=== PATIENT | female | born 1930 | race Two or more races ===

== ENCOUNTER → 2017-02-24 | Outpatient (CLI) | payer OTHER ==
[~2017-02-24] MED LIST: ACET5SOL5 PO; ASPI-378 PO; IBUP200C14 PO
[2017-02-24 12:08] LABS: Basophils # (auto) 0.2 uL; Basophils % (auto) 1.9 % (0.0-2.0); Eosinophils # (auto) 0.2 uL; Eosinophils % (auto) 2.9 % (0.0-7.0); Hematocrit 38.8 % (36.0-46.0); Hemoglobin 12.3 g/dL (12.2-16.2); Lymphocytes # (auto) 2.2 uL; Lymphocytes % (auto) 26.1 % (10.0-50.0); Mean Corpuscular Hemoglobin 27.3 pg (28.0-32.0); Mean Corpuscular Hgb Conc. 31.8 g/dL (32.0-36.0); Mean Corpuscular Volume 85.6 fL (80.0-100.0); Mean Platelet Volume 7.1 fL (7.4-10.4); Monocytes # (auto) 0.6 uL; Monocytes % (auto) 7.2 % (0.0-12.0); Neutrophils # (auto) 5.2 uL; Neutrophils % (auto) 61.9 % (37.0-80.0); Platelet Count (auto) 290 10^3/uL (140-450); White Blood Cell 8.3 10^3/uL (4.4-10.8)
== END | disposition home or self-care (01) ==
LOC: LAB 11:51
PROVIDERS: ATTEND Internal Medicine
DX: R10.9 Unspecified abdominal pain (principal)
CPT/HCPCS: 36415; 84132; 85025; 86431

== ENCOUNTER → 2018-01-20 | Outpatient (CLI) | payer OTHER ==
[2018-01-20 09:58] LABS: Basophils # (auto) 0.1 uL; Basophils % (auto) 1.2 % (0.0-2.0); Eosinophils # (auto) 0.2 uL; Eosinophils % (auto) 2.9 % (0.0-7.0); Lymphocytes # (auto) 1.8 uL; Lymphocytes % (auto) 24.5 % (10.0-50.0); Mean Corpuscular Hemoglobin 28.8 pg (28.0-32.0); Mean Corpuscular Hgb Conc. 32.6 g/dL (32.0-36.0); Mean Corpuscular Volume 88.5 fL (80.0-100.0); Monocytes # (auto) 0.4 uL; Monocytes % (auto) 5.9 % (0.0-12.0); Neutrophils # (auto) 4.8 uL; Neutrophils % (auto) 65.5 % (37.0-80.0); Platelet Count (auto) 217 10^3/uL (140-450); Red Blood Cells 4.87 10^6/uL (4.0-5.20); Red Cell Distribution Width 14.6 % (11.8-14.3); White Blood Cell 7.3 10^3/uL (4.4-10.8)
[2018-01-20 10:24] LABS: Albumin 3.6 g/dL (3.4-5.0); BUN/Creatinine Ratio 18.3; Bilirubin, Total 0.5 mg/dL (0.2-1.0); Calcium 9.3 mg/dL (8.5-10.1); Potassium 4.1 mmol/L (3.5-5.1); Total Protein 7.7 g/dL (6.4-8.2)
[2018-01-20 10:38] LABS: Free T4 (Free Thyroxine) 1.15 ng/dL (0.89-1.76)
== END | disposition home or self-care (01) ==
LOC: LAB 09:25
PROVIDERS: ATTEND Internal Medicine
DX: E11.40 Type 2 diabetes mellitus with diabetic neuropathy, unspecified (principal); I12.9 Hypertensive chronic kidney disease with stage 1 through stage 4 chronic kidney disease, or unspecified chronic kidney disease; E11.22 Type 2 diabetes mellitus with diabetic chronic kidney disease; N18.3 Chronic kidney disease, stage 3 (moderate)
CPT/HCPCS: 36415; 80053; 80061; 82150; 82607; 83036; 83690; 83880; 84439; 84443; 85025; 85652

== ENCOUNTER 2018-05-25 08:25 | Inpatient (IN) | payer OTHER ==
[2018-05-23 13:22] LABS: Basophils # (auto) 0.1 uL; Basophils % (auto) 0.9 % (0.0-2.0); Eosinophils # (auto) 0.1 uL; Eosinophils % (auto) 1.2 % (0.0-7.0); Hematocrit 44.6 % (36.0-46.0); Hemoglobin 14.5 g/dL (12.2-16.2); Lymphocytes # (auto) 1.9 uL; Lymphocytes % (auto) 24.9 % (10.0-50.0); Mean Corpuscular Hgb Conc. 32.6 g/dL (32.0-36.0); Mean Corpuscular Volume 89.1 fL (80.0-100.0); Monocytes # (auto) 0.5 uL; Monocytes % (auto) 7.3 % (0.0-12.0); Neutrophils # (auto) 4.9 uL; Neutrophils % (auto) 65.7 % (37.0-80.0); Platelet Count (auto) 222 10^3/uL (140-450); White Blood Cell 7.5 10^3/uL (4.4-10.8)
[2018-05-23 13:48] LABS: INR 0.99 (0.9-1.15); Partial Thromboplastin Time 26.5 sec (23.78-33.04); Prothrombin Time 10.6 sec (9.27-12.13)
[2018-05-23 13:59] LABS: Albumin 3.6 g/dL (3.4-5.0); Calcium 9.7 mg/dL (8.5-10.1); Potassium 3.5 mmol/L (3.5-5.1)
[2018-05-23 14:03] LABS: Bilirubin, Total 0.4 mg/dL (0.2-1.0); Total Protein 7.8 g/dL (6.4-8.2)
[~2018-05-25] VITALS: Ht 160 cm; Wt 63.6 kg
[~2018-05-25 08:25] MED LIST changes: -ACET5SOL5 PO; -ASPI-378 PO; +ATOR10TA52 PO; +CLON1TAB4 PO; +ENA10T PO; +FLUT250M2 INH; -IBUP200C14 PO; +METO25TA5 PO; +ONDA4TAB5 PO; +PIO30T PO; +TRAM50TA2 PO
[2018-05-25] MEDS ORDERED: LIDOCAINE 2%HCL (LOCAL ANESTH.) INJ 20ML MDV ONE (08:44)
[2018-05-25] MEDS ORDERED: IODIXANOL 320MG/ML 100ML BTL IV ONE (08:44)
[2018-05-25] MEDS ORDERED: ANGIOMAX 250 MG VIAL IV ONE (09:57)
[2018-05-25] MEDS ORDERED: fentaNYL CITRATE 100 MCG/2 ML VL ONE (09:58)
[2018-05-25] MEDS ORDERED: SODIUM CHL 0.9% 0 ML ONE (09:58)
[2018-05-25] MEDS ORDERED: MIDAZOLAM HCL 1MG/1ML-2 ML VIAL ONE (09:58)
[2018-05-25] MEDS ORDERED: METOPROLOL TARTRATE 1MG/1ML-5ML VIAL IV ONE (11:05)
[2018-05-25] MEDS ORDERED: traMADol HCL 50 MG TAB PO PRN (12:00)
[2018-05-25] MEDS ORDERED: NITROGLYCERIN 0.4 MG SL TAB SL PRN (12:00)
[2018-05-25] MEDS ORDERED: MORPHINE SULFATE 4 MG/ML SYR/VIAL IV PRN (12:00)
[2018-05-25] MEDS ORDERED: ACETAMINOPHEN 500 MG TAB PO PRN (12:00)
[2018-05-25] MEDS ORDERED: ONDANSETRON ODT 4 MG TAB PO PRN (12:15)
[2018-05-25] MEDS: clonazePAM 0.5 MG TAB PO SCH ×2 (12:15→18:06)
[2018-05-25] MEDS: HYDROcodone-ACET 5/325MG TAB PO PRN (12:17)
[2018-05-25 16:31] VITALS: BP 156/76
[2018-05-25 21:39] VITALS: BP 125/64
[2018-05-25] MEDS: ADVAIR INH SCH (22:00)
[2018-05-25] MEDS: METOPROLOL TARTRATE 25 MG TAB PO SCH (22:01)
[2018-05-25] MEDS: ATORVASTATIN 20 MG TAB PO SCH (22:01)
[2018-05-25 22:53] LABS: Urine Bacteria NONE SEEN /hpf (None Seen); Urine Blood 1+ /uL (Negative); Urine WBC 2 /hpf (0 - 5)
[2018-05-26 05:06] VITALS: BP 161/80
[2018-05-26] MEDS: METOPROLOL TARTRATE 25 MG TAB PO SCH ×2 (07:50→22:47)
[2018-05-26] MEDS: ENALAPRIL MALEATE 10 MG TAB PO SCH (07:51)
[2018-05-26] MEDS: HYDROcodone-ACET 5/325MG TAB PO PRN (07:52)
[2018-05-26 09:00] VITALS: BP 165/78
[2018-05-26] MEDS ORDERED: PIOGLITAZONE HYDROCHLORIDE 30 MG TAB PO SCH (10:00)
[2018-05-26] MEDS: ADVAIR INH SCH ×2 (10:00→22:00)
[2018-05-26] MEDS ORDERED: DEXTROSE (50%) 50ML SYRG IV PRN (10:15)
[2018-05-26] MEDS: InsuLIN REG 1unit/0.01ml Soln (100units/ml) SC SCH ×3 (11:30→22:00)
[2018-05-26 13:00] VITALS: BP 141/74
[2018-05-26] MEDS: ACCU-CHEK COMFORT CURVE STRIP VI SCH ×3 (13:06→22:00)
[2018-05-26 16:45] VITALS: BP 146/79
[2018-05-26] MEDS: clonazePAM 0.5 MG TAB PO SCH (18:19)
[2018-05-26 22:00] VITALS: BP 141/65
[2018-05-26] MEDS: ATORVASTATIN 20 MG TAB PO SCH (22:45)
[2018-05-27 05:11] VITALS: BP 152/78
[2018-05-27 06:12] LABS: BUN/Creatinine Ratio 22.2; Calcium 8.5 mg/dL (8.5-10.1); Potassium 3.7 mmol/L (3.5-5.1)
[2018-05-27] MEDS: ACCU-CHEK COMFORT CURVE STRIP VI SCH ×2 (06:14→11:42)
[2018-05-27] MEDS: InsuLIN REG 1unit/0.01ml Soln (100units/ml) SC SCH ×2 (06:15→11:30)
[2018-05-27 08:20] VITALS: BP 139/76
[2018-05-27] MEDS: ADVAIR INH SCH (09:59)
[2018-05-27] MEDS: METOPROLOL TARTRATE 25 MG TAB PO SCH (10:03)
[2018-05-27] MEDS: ENALAPRIL MALEATE 10 MG TAB PO SCH (10:04)
[2018-05-27 12:30] VITALS: BP 138/65
[2018-05-27 16:54] VITALS: BP 120/65
== END 2018-05-27 17:55 | disposition home or self-care (01) | DRG 286 ==
LOC: CATH 08:25 → TELE-CENTR 14:10
PROVIDERS: ADMIT Internal Medicine; ATTEND Internal Medicine
PROC: 4A023N8 Measurement of Cardiac Sampling and Pressure, Bilateral, Percutaneous Approach (ICD-10-PCS; principal; 2018-05-26)
PROC: B2111ZZ Fluoroscopy of Multiple Coronary Arteries using Low Osmolar Contrast (ICD-10-PCS; 2018-05-26)
PROC: B2151ZZ Fluoroscopy of Left Heart using Low Osmolar Contrast (ICD-10-PCS; 2018-05-26)
DX: I35.0 Nonrheumatic aortic (valve) stenosis (principal); J96.00 Acute respiratory failure, unspecified whether with hypoxia or hypercapnia; I27.20 Pulmonary hypertension, unspecified; D64.9 Anemia, unspecified; E11.22 Type 2 diabetes mellitus with diabetic chronic kidney disease; I12.9 Hypertensive chronic kidney disease with stage 1 through stage 4 chronic kidney disease, or unspecified chronic kidney disease; J44.9 Chronic obstructive pulmonary disease, unspecified; M19.90 Unspecified osteoarthritis, unspecified site; N18.3 Chronic kidney disease, stage 3 (moderate); Z79.84 Long term (current) use of oral hypoglycemic drugs; Z87.891 Personal history of nicotine dependence; Z87.19 Personal history of other diseases of the digestive system
CPT/HCPCS: 36415; 36600; 71250; 80048; 80053; 81001; 82805; 82962; 83036; 85025; 85610; 85730; 93306; 93886; 99152; A6257; C1751; G0378; J2250; Q0162; Q9967

== ENCOUNTER → 2019-03-28 | Outpatient (CLI) | payer OTHER ==
[~2019-03-28] MED LIST changes: +CLON1TAB10 PO; -CLON1TAB4 PO; -ENA10T PO; +ENAL10TA PO; +ONDA-144 PO; -ONDA4TAB5 PO
[2019-03-28 09:32] LABS: Urine WBC None Seen /hpf (0 - 5)
[2019-03-28 09:41] LABS: Basophils # (auto) 0.1 uL; Eosinophils # (auto) 0.3 uL; Eosinophils % (auto) 3.9 % (0.0-7.0); Hematocrit 44.5 % (36.0-46.0); Hemoglobin 14.8 g/dL (12.2-16.2); Lymphocytes # (auto) 1.7 uL; Lymphocytes % (auto) 26.7 % (10.0-50.0); Mean Corpuscular Hemoglobin 29.7 pg (28.0-32.0); Mean Corpuscular Hgb Conc. 33.1 g/dL (32.0-36.0); Mean Corpuscular Volume 89.7 fL (80.0-100.0); Monocytes # (auto) 0.4 uL; Monocytes % (auto) 6.7 % (0.0-12.0); Neutrophils % (auto) 61.7 % (37.0-80.0); Platelet Count (auto) 218 10^3/uL (140-450); Red Blood Cells 4.96 10^6/uL (4.0-5.20); Red Cell Distribution Width 13.5 % (11.8-14.3); White Blood Cell 6.5 10^3/uL (4.4-10.8)
[2019-03-28 09:46] LABS: Urine Bacteria NONE SEEN /hpf (None Seen); Urine Blood 1+ /uL (Negative); Urine Specific Gravity 1.014 (1.001-1.035)
[2019-03-28 10:23] LABS: Albumin 3.4 g/dL (3.4-5.0)
[2019-03-28 10:32] LABS: BUN/Creatinine Ratio 17.6; Bilirubin, Total 0.4 mg/dL (0.2-1.0); Calcium 9.4 mg/dL (8.5-10.1); Total Protein 7.3 g/dL (6.4-8.2)
[2019-03-28 10:35] LABS: Free T4 (Free Thyroxine) 1.02 ng/dL (0.89-1.76)
== END | disposition home or self-care (01) ==
LOC: LAB 08:50
PROVIDERS: ATTEND Internal Medicine
DX: I12.9 Hypertensive chronic kidney disease with stage 1 through stage 4 chronic kidney disease, or unspecified chronic kidney disease (principal); E11.22 Type 2 diabetes mellitus with diabetic chronic kidney disease; N18.3 Chronic kidney disease, stage 3 (moderate)
CPT/HCPCS: 36415; 80053; 80061; 81001; 82043; 82607; 83036; 84439; 84443; 85025; 85652

== ENCOUNTER 2019-07-07 12:46 | Emergency (ER) | payer OTHER, MEDICAID ==
[~2019-07-07] VITALS: Ht 160 cm; Wt 68.0 kg
[2019-07-07 13:22] LABS: Basophils # (auto) 0.1 uL; Basophils % (auto) 0.9 % (0.0-2.0); Eosinophils # (auto) 0.2 uL; Eosinophils % (auto) 1.4 % (0.0-7.0); Hematocrit 44.4 % (36.0-46.0); Hemoglobin 14.7 g/dL (12.2-16.2); Lymphocytes % (auto) 18.8 % (10.0-50.0); Mean Corpuscular Hemoglobin 28.9 pg (28.0-32.0); Mean Corpuscular Hgb Conc. 33.2 g/dL (32.0-36.0); Monocytes # (auto) 0.6 uL; Monocytes % (auto) 5.6 % (0.0-12.0); Neutrophils # (auto) 7.7 uL; Neutrophils % (auto) 73.3 % (37.0-80.0); Platelet Count (auto) 248 10^3/uL (140-450); White Blood Cell 10.5 10^3/uL (4.4-10.8)
[2019-07-07 13:36] LABS: INR 1.03 (0.9-1.15); Partial Thromboplastin Time 26.4 sec (23.64-32.05)
[2019-07-07 13:44] LABS: Albumin 3.6 g/dL (3.4-5.0); Anion Gap 9 (5-15); Blood Urea Nitrogen 23 mg/dL (7-18); Calcium 9.2 mg/dL (8.5-10.1); Carbon Dioxide 24 mmol/L (21-32); Chloride 108 mmol/L (98-107); Glucose 94 mg/dL (74-106); Potassium 4.1 mmol/L (3.5-5.1); Sodium 141 mmol/L (136-145)
[2019-07-07 13:46] LABS: Alanine Aminotransferase 14 U/L (13-56); Aspartate Aminotransferase 11 U/L (15-37); BUN/Creatinine Ratio 18.7; GFR African American 53 mL/min; GFR Non-African American 44 mL/min
[2019-07-07 13:51] LABS: Alkaline Phosphatase 51 U/L (45-117); Bilirubin, Total 0.4 mg/dL (0.2-1.0); Total Protein 7.5 g/dL (6.4-8.2)
[2019-07-07] MEDS ORDERED: SODIUM CHLORIDE 0.9% 500 ML IV ONE (16:30)
[2019-07-07 17:27] LABS: Urine Bacteria NONE SEEN /hpf (None Seen); Urine Blood 1+ /uL (Negative); Urine Specific Gravity 1.009 (1.001-1.035); Urine WBC 4 /hpf (0 - 5)
[2019-07-07 19:01] VITALS: BP 141/89
== END 2019-07-07 19:03 | disposition home or self-care (01) ==
LOC: ER 12:46
DX: N39.0 Urinary tract infection, site not specified (principal); J44.9 Chronic obstructive pulmonary disease, unspecified; N28.1 Cyst of kidney, acquired; E11.9 Type 2 diabetes mellitus without complications; E78.5 Hyperlipidemia, unspecified; I10 Essential (primary) hypertension; K21.9 Gastro-esophageal reflux disease without esophagitis
CPT/HCPCS: 36415; 70450; 71046; 74176; 80053; 81001; 82962; 83605; 83880; 84484; 85025; 85610; 85730; 93005

== ENCOUNTER → 2019-08-18 | Outpatient (CLI) | payer OTHER, MEDICAID | END | disposition home or self-care (01) | LOC: LAB 15:41 | PROVIDERS: ATTEND Internal Medicine | DX: N34.2 Other urethritis (principal) | CPT/HCPCS: 87086 ==

== ENCOUNTER → 2019-08-28 | Outpatient (CLI) | payer OTHER, MEDICAID ==
[2019-08-28 10:31] LABS: Cholesterol 232 mg/dL (< 200); HDL Cholesterol 47 mg/dL (40-59); LDL Cholesterol 167 mg/dL (< 100); Triglycerides 155 mg/dL (< 150)
== END | disposition home or self-care (01) ==
LOC: LAB 09:44
PROVIDERS: ATTEND Internal Medicine
DX: E11.9 Type 2 diabetes mellitus without complications (principal); E78.00 Pure hypercholesterolemia, unspecified
CPT/HCPCS: 36415; 80061; 83036

== ENCOUNTER → 2019-10-23 | Outpatient (CLI) | payer OTHER, MEDICAID ==
[2019-10-23 10:30] LABS: Albumin 3.5 g/dL (3.4-5.0); Calcium 9.3 mg/dL (8.5-10.1); Potassium 4.5 mmol/L (3.5-5.1)
[2019-10-23 10:35] LABS: BUN/Creatinine Ratio 24.8; Bilirubin, Total 0.5 mg/dL (0.2-1.0); Total Protein 7.4 g/dL (6.4-8.2); Uric Acid 7.1 mg/dL (2.6-6.0)
== END | disposition home or self-care (01) ==
LOC: LAB 09:17
PROVIDERS: ATTEND Internal Medicine
DX: E11.22 Type 2 diabetes mellitus with diabetic chronic kidney disease (principal); E78.5 Hyperlipidemia, unspecified; M25.50 Pain in unspecified joint
CPT/HCPCS: 36415; 80053; 80061; 82550; 83036; 84550; 86038

== ENCOUNTER → 2020-01-01 | Outpatient (CLI) | payer OTHER, MEDICAID ==
[2020-01-01 16:35] LABS: Basophils # (auto) 0.1 10 ^3/uL (0-0.2); Lymphocytes # (auto) 1.6 10 ^3/uL (0.4-5.4); Monocytes # (auto) 0.5 10 ^3/uL (0-1.3); White Blood Cell 8.9 10^3/uL (4.4-10.8)
[2020-01-01 16:37] LABS: Eosinophils # (auto) 0.2 10 ^3/uL (0-0.8); Eosinophils % (auto) 1.9 % (0.0-7.0); Hematocrit 23.5 % (36.0-46.0); Hemoglobin 7.4 g/dL (12.2-16.2); Lymphocytes % (auto) 17.8 % (10.0-50.0); Mean Corpuscular Hemoglobin 26.6 pg (28.0-32.0); Mean Corpuscular Hgb Conc. 31.7 g/dL (32.0-36.0); Mean Corpuscular Volume 83.9 fL (80.0-100.0); Monocytes % (auto) 5.8 % (0.0-12.0); Neutrophils # (auto) 6.6 10 ^3/uL (1.6-8.6); Neutrophils % (auto) 73.5 % (37.0-80.0); Platelet Count (auto) 311 10^3/uL (140-450); Red Cell Distribution Width 14.9 % (11.8-14.3)
[2020-01-01 16:54] LABS: Albumin 3.6 g/dL (3.4-5.0); Calcium 8.9 mg/dL (8.5-10.1); Potassium 4.9 mmol/L (3.5-5.1)
[2020-01-01 16:57] LABS: BUN/Creatinine Ratio 23.8; Bilirubin, Total 0.2 mg/dL (0.2-1.0); Total Protein 7.2 g/dL (6.4-8.2)
== END | disposition home or self-care (01) ==
LOC: LAB 16:18
PROVIDERS: ATTEND Internal Medicine
DX: E11.22 Type 2 diabetes mellitus with diabetic chronic kidney disease (principal); N18.3 Chronic kidney disease, stage 3 (moderate)
CPT/HCPCS: 36415; 80053; 83036; 85025

== ENCOUNTER 2020-01-02 15:06 | Emergency (ER) | payer OTHER, MEDICAID ==
[~2020-01-02] VITALS: Ht 160 cm; Wt 55.8 kg
[2020-01-02 15:47] LABS: Basophils # (auto) 0.1 10 ^3/uL (0-0.2); Eosinophils # (auto) 0.2 10 ^3/uL (0-0.8); Hemoglobin 7.2 g/dL (12.2-16.2); Monocytes # (auto) 0.6 10 ^3/uL (0-1.3); Platelet Count (auto) 312 10^3/uL (140-450)
[2020-01-02 15:49] LABS: Basophils % (auto) 1.1 % (0.0-2.0); Eosinophils % (auto) 1.9 % (0.0-7.0); Hematocrit 22.6 % (36.0-46.0); Lymphocytes # (auto) 1.7 10 ^3/uL (0.4-5.4); Lymphocytes % (auto) 19.7 % (10.0-50.0); Mean Corpuscular Hemoglobin 26.4 pg (28.0-32.0); Mean Corpuscular Hgb Conc. 31.9 g/dL (32.0-36.0); Mean Corpuscular Volume 82.8 fL (80.0-100.0); Monocytes % (auto) 7.1 % (0.0-12.0); Neutrophils # (auto) 5.9 10 ^3/uL (1.6-8.6); Neutrophils % (auto) 70.2 % (37.0-80.0); Red Blood Cells 2.73 10^6/uL (4.0-5.20); Red Cell Distribution Width 14.7 % (11.8-14.3); White Blood Cell 8.4 10^3/uL (4.4-10.8)
[2020-01-02 16:04] LABS: Calcium 8.7 mg/dL (8.5-10.1); Potassium 4.8 mmol/L (3.5-5.1)
[2020-01-02 16:10] LABS: Albumin 3.6 g/dL (3.4-5.0); BUN/Creatinine Ratio 19.7; Bilirubin, Total 0.3 mg/dL (0.2-1.0); Total Protein 7.1 g/dL (6.4-8.2)
[2020-01-02 16:12] LABS: INR 1.04 (0.9-1.15); Partial Thromboplastin Time 21.5 sec (23.64-32.05)
[2020-01-02 16:27] LABS: Urine Bacteria NONE SEEN /hpf (None Seen); Urine Blood Negative /uL (Negative); Urine Hyaline Cast FEW /lpf (0 - 2); Urine Specific Gravity 1.013 (1.001-1.035); Urine WBC 1 /hpf (0 - 5)
[2020-01-02 16:31] VITALS: BP 108/57
[2020-01-02] MEDS ORDERED: FERROUS SULFATE 325 MG TAB PO ONE (17:30)
== END 2020-01-02 17:30 | disposition home or self-care (01) ==
LOC: ER 15:06
DX: D64.9 Anemia, unspecified (principal); E11.9 Type 2 diabetes mellitus without complications; I10 Essential (primary) hypertension; K21.9 Gastro-esophageal reflux disease without esophagitis; E78.5 Hyperlipidemia, unspecified; Z79.899 Other long term (current) drug therapy
CPT/HCPCS: 36415; 71045; 80053; 81001; 82962; 85025; 85610; 85730; 86850; 86900; 86901; 93005

== ENCOUNTER → 2020-02-16 | Outpatient (CLI) | payer OTHER, MEDICAID ==
[~2020-02-16] MED LIST changes: -ENAL10TA PO; +ENAL10TA12 PO
[2020-02-16 15:53] LABS: Basophils # (auto) 0.1 10 ^3/uL (0-0.2); Eosinophils # (auto) 0.2 10 ^3/uL (0-0.8); Eosinophils % (auto) 3.3 % (0.0-7.0); Hemoglobin 8.2 g/dL (12.2-16.2); Lymphocytes # (auto) 1.7 10 ^3/uL (0.4-5.4); Neutrophils # (auto) 4.3 10 ^3/uL (1.6-8.6); Red Cell Distribution Width 16.7 % (11.8-14.3); White Blood Cell 6.9 10^3/uL (4.4-10.8)
[2020-02-16 15:54] LABS: Basophils % (auto) 1.3 % (0.0-2.0); Hematocrit 26.8 % (36.0-46.0); Lymphocytes % (auto) 25.4 % (10.0-50.0); Mean Corpuscular Hemoglobin 25.3 pg (28.0-32.0); Mean Corpuscular Hgb Conc. 30.8 g/dL (32.0-36.0); Mean Corpuscular Volume 82.1 fL (80.0-100.0); Monocytes # (auto) 0.5 10 ^3/uL (0-1.3); Platelet Count (auto) 274 10^3/uL (140-450); Red Blood Cells 3.26 10^6/uL (4.0-5.20)
[2020-02-16 16:29] LABS: Albumin 3.3 g/dL (3.4-5.0); BUN/Creatinine Ratio 21.9; Calcium 8.7 mg/dL (8.5-10.1); Potassium 4.2 mmol/L (3.5-5.1)
[2020-02-16 16:31] LABS: Bilirubin, Total 0.1 mg/dL (0.2-1.0); Total Protein 6.9 g/dL (6.4-8.2)
== END | disposition home or self-care (01) ==
LOC: LAB 15:39
PROVIDERS: ATTEND Internal Medicine
DX: N18.3 Chronic kidney disease, stage 3 (moderate) (principal); D64.9 Anemia, unspecified
CPT/HCPCS: 36415; 80053; 83540; 85025

== ENCOUNTER → 2020-04-05 | Outpatient (CLI) | payer OTHER, MEDICAID | END | disposition home or self-care (01) | LOC: LAB 14:24 | PROVIDERS: ATTEND Internal Medicine | DX: D64.9 Anemia, unspecified (principal) | CPT/HCPCS: 82270 ==